=== PATIENT | female | born 1995 | race African-American/Black ===

== ENCOUNTER 2017-05-12 20:32 | Emergency (ER) | payer OTHER ==
[~2017-05-12] VITALS: Ht 152.4 cm; Wt 65.8 kg
[2017-05-12 20:38] VITALS: BP 120/75
== END 2017-05-12 21:08 | disposition home or self-care (01) ==
LOC: ED 20:32
DX: K21.9 Gastro-esophageal reflux disease without esophagitis (principal); K59.00 Constipation, unspecified